=== PATIENT | female | born 1995 | race Caucasian/White ===

== ENCOUNTER 2020-09-15 17:51 | Emergency (ER) | payer MEDICAID, OTHER ==
[~2020-09-15] VITALS: Ht 170 cm; Wt 127.0 kg
[~2020-09-15 17:51] MED LIST: HYDR118S10 PO
[2020-09-15] MEDS ORDERED: TETANUS,DIPTH,PERTUSS P/F (BOOSTRIX) 0.5 ML VIAL IM ONE (18:00)
[2020-09-15] MEDS ORDERED: LIDOCAINE/EPI 2% 1:100,00 (XYLOCAINE) 20 ML VIAL INJ ONE (18:00)
[2020-09-15] MEDS ORDERED: HYDROcodone/APAP 5 MG/325 MG (LORTAB) TAB PO ONE (18:00)
[2020-09-15] MEDS ORDERED: ONDANSETRON 4 MG (ZOFRAN) ORAL DISSOLVE TAB ONE (18:12)
[2020-09-15] MEDS ORDERED: ONDANSETRON 4 MG (ZOFRAN) ORAL DISSOLVE TAB PO ONE (18:30)
--- NOTE | 2020-09-15 18:57 | ED Upper Extremity ---
General Chief Complaint: Laceration Stated Complaint: L ARM LAC Nursing Triage Note: PT WAS WALKING AND RAN INTO A PIECE OF GLASS AROUND 1320. PT AMB TO [facility] WITHOUT DIFFICULTY. Nursing Sepsis Screen: No Definite Risk Source: patient Exam Limitations: no limitations History of Present Illness Date Seen by Provider: Sep 15, 2020 Time Seen by Provider: 17:55 Initial Comments This 24-year-old young lady presents to the emergency room with a 5 cm laceration on the left forearm caused by a broken piece of glass from a fish tank. The incident occurred around 13:20 this afternoon. She presented to another emergency room where she waited for a few hours. She then left after waiting that amount of time and presented to the ER in [place]. They felt the wound was too large to address in their facility. A pressure dressing was applied due to active bleeding. She is not bleeding through the dressing but does bleed when the dressing is removed. Tetanus needs updated. Laceration does not penetrate beyond the subcutaneous layers. Patient is 2 months from but is not breast-feeding. Allergies and Home Medications Allergies Coded Allergies: Sulfa (Sulfonamide Antibiotics) (Unverified Adverse Reaction, Mild, NAUSEA, 05/27/13) Home Medications Hydrocodone/Acetaminophen 1 Each Tablet, 1-2 TAB PO Q4H PRN, (Reported) DISCONTINUE THIS MEDICATION. MAY USE OVER THE COUNTER PAIN RELIEVERS NEEDED. Patient Home Medication List Home Medication List Reviewed: Yes Review of Systems Constitutional: no symptoms reported EENTM: no symptoms reported Respiratory: no symptoms reported Cardiovascular: no symptoms reported Gastrointestinal: no symptoms reported Genitourinary: no symptoms reported : No Musculoskeletal: no symptoms reported Skin: see HPI Psychiatric/Neurological: No Symptoms Reported Past Ejbugbc-Hgfjuh-Vjjykt Hx Past Med/Social Hx: Reviewed Nursing Past Med/Soc Hx Patient Social History Alcohol Use: Denies Use Smoking Status: Never a Smoker Recent Infectious Disease Expo: No Recent Hopitalizations: No Immunizations Up To Date Tetanus Booster (TDap): Less than 5yrs PED Vaccines UTD: Yes Seasonal Allergies Seasonal Allergies: No Past Medical History Surgeries: No Respiratory: No Cardiac: No Neurological: No : No Reproductive Disorders: No UTI-Chronic Gastrointestinal: No Musculoskeletal: Yes (RIGHT WRIST FX) Endocrine: No Cancer: No Psychosocial: No Integumentary: Yes (hives on neck and chest on admit) Recent Skin Changes Blood Disorders: No Physical Exam Vital Signs Vital Signs - First Documented 09/15/20 17:56 Temp 36.5 Pulse 80 Resp 18 B/P (MAP) 143/72 (95) Pulse Ox 100 O2 Delivery Room Air Capillary Refill : Less Than 3 Seconds Height, Weight, BMI Height: '" Weight: 271lbs. oz. 122.482363sz; 43.00 BMI Method: General Appearance: WD/WN, no apparent distress HEENT: normal ENT inspection Respiratory: no respiratory distress, no accessory muscle use Elbow/Forearm: Left (5 cm laceration into the subcutaneous tissue on the mid left forearm. When pressure is released there is active bleeding at the distal end of the wound. There is tenderness associated with the injury.) Wrist: Yes normal inspection, Yes no evidence of injury Hand: normal inspection, no evidence of injury Neurologic/Tendon: normal sensation, normal motor functions, normal tendon functions Neurologic/Psychiatric: alert, normal mood/affect, oriented x 3 Skin: normal color, warm/dry, other (See above) Procedures/Interventions Wound Location: Upper Extremities Other Wound Location Dorsum of the left midforearm Wound Length (cm): 5 Wound's Depth, Shape: linear, sub Q Wound Explored: no foreign body removed Irrigated w/ Saline (ccs): 500 Betadine Prep?: Yes Anesthesia: Lidocaine w/ Epi Volume Anesthetic (ccs): 15 Suture: Prolene Suture Size: 4-0 Number of Sutures: 11 Layer Closure?: 1 Sterile Dressing Applied?: Yes Progress Open wound was sprayed with lidocaine with epinephrine. Skin was then cleaned with alcohol and local anesthesia was administered via injection. Wound was then irrigated with 500 mL normal saline. Betadine was applied hemostasis was achieved by suturing and pressure. Interrupted sutures were used to approximate the wound. The first half of the wound was approximated by Dr. Ram. The remainder of the wound was repaired by Ab Rich, MS 4, under my direct supervision. Wound was then dressed with Xeroform gauze, cotton gauze, and Coban. Progress/Results/Core Measures Results/Orders My Orders Orders - EVAN RAM MD Amoxicillin/Clavulanate Tablet (Augmenti (09/15/20 19:00) Doxycycline Hyclate Tablet (Vibramycin T (09/15/20 19:00) Medications Given in ED Current Medications Medications Dose Ordered Sig/Isabella Route Start Time Stop Time Status Last Admin Dose Admin Acetaminophen/ Hydrocodone Bitart 1 ea ONCE ONCE PO 09/15/20 18:00 09/15/20 18:01 DC 09/15/20 18:09 1 EA Amoxicillin/ Clavulanate Potassium 500 mg ONCE ONCE PO 09/15/20 19:00 09/15/20 19:01 DC 09/15/20 20:08 500 MG Diphtheria/ Tetanus/Acell Pertussis 0.5 ml ONCE ONCE IM 09/15/20 18:00 09/15/20 18:01 DC 09/15/20 20:07 0.5 ML Doxycycline Hyclate 100 mg ONCE ONCE PO 09/15/20 19:00 09/15/20 19:01 DC 09/15/20 20:08 100 MG Lidocaine/ Epinephrine 20 ml ONCE ONCE INJ 09/15/20 18:00 09/15/20 18:01 DC 09/15/20 18:15 20 ML Ondansetron HCl 4 mg ONCE ONCE PO 09/15/20 18:30 09/15/20 18:31 DC 09/15/20 18:19 4 MG Vital Signs/I&O 09/15/20 09/15/20 17:56 20:00 Temp 36.5 36.5 Pulse 80 72 Resp 18 16 B/P (MAP) 143/72 (95) 127/72 Pulse Ox 100 100 O2 Delivery Room Air Room Air Blood Pressure Mean: 95 Progress Progress Note #1: Progress Note Tetanus booster was ordered. Pain was treated with hydrocodone. Patient became nauseous during the repair and was given Zofran. Because the injury was caused by a dirty fish tank, she was also prophylactically given a dose of doxycycline and Augmentin. Patient walked out before receiving her discharge papers and tetanus immunization. Progress Note #2: Progress Note Patient returned to receive her tetanus vaccine and discharge papers. Departure Impression Primary Impression: Laceration of left forearm Qualified Codes: S51.812A - Laceration without foreign body of left forearm, initial encounter Disposition: HOME, SELF-CARE Condition: Improved Departure-Patient Inst. Referrals: NO,LOCAL PHYSICIAN (PCP/Family) Primary Care Physician Patient Instructions: Laceration Repair With Stitches (DC) Add. Discharge Instructions: Keep the wound clean and dry except for normal showering. You may begin showering tomorrow morning. Allow soapy water to run over the wound but do not scrub directly over it. Do not submerge until sutures are removed. Monitor the wound for signs of infection such as increasing redness, puslike drainage, fever, etc. Return to care promptly if you notice these symptoms. You may use ibuprofen up to 600 mg every 6 hours and/or Tylenol (acetaminophen) up to 1000 mg every 6 hours as needed for pain. Keep covered when active or in dirty environments. When you are at rest you may leave open to air. Cover while sleeping to avoid accidentally disrupting the sutures. Wound may ooze or draining some blood or yellowish liquid over the next couple of days. If there is significant bleeding, apply pressure for 20 minutes. While is still draining, a thin layer of Vaseline over the wound may help prevent dressing from sticking to it. Return in about 10 days to have the sutures removed. Call with questions or concerns. Return to care for worsening symptoms. All discharge instructions reviewed with patient and/or family. Voiced understanding. EVAN RAM MD Sep 15, 2020 18:57
[2020-09-15] MEDS ORDERED: AUGMENTIN 500 MG TAB (AMOXICILLIN/CLAVULANATE) PO ONE (19:00)
[2020-09-15] MEDS ORDERED: DOXYCYCLINE 100 MG (VIBRAMYCIN) TABLET PO ONE (19:00)
[2020-09-15 20:00] VITALS: BP 127/72
== END 2020-09-15 20:00 | disposition home or self-care (01) ==
LOC: EDUNIT# 17:51 → ER 17:53
DX: S51.812A Laceration without foreign body of left forearm, initial encounter (principal); Z23 Encounter for immunization; Z88.2 Allergy status to sulfonamides; W25.XXXA Contact with sharp glass, initial encounter
CPT/HCPCS: 90715; 99283